=== PATIENT | female | born 1940 | race African-American/Black ===

== ENCOUNTER 2023-12-17 14:14 | Emergency (ER) | payer OTHER ==
[~2023-12-17] VITALS: Ht 160 cm; Wt 91.3 kg
[~2023-12-17 14:14] MED LIST: AMLO1TAB22 PO; CYCL-839 PO; DABI150C5 PO; DICL75TA3 PO; ENAL1TAB48 PO; HYDR25TA4 PO; METF-370 PO; NOR10T PO; SIMV20TA20 PO
[2023-12-17] MEDS ORDERED: AUG875T PO (14:44)
[2023-12-17] MEDS ORDERED: ACE3T PO (14:44)
[2023-12-17] MEDS ORDERED: HYDR-4902 PO (20:37)
[2023-12-17] MEDS: DexAMETHasone SOD PHOS 10MG/1ML VIAL INJ IM ONE (20:48)
[2023-12-17] MEDS: cefTRIAXone SOD 1,000 MG VL IM ONE (20:48)
[2023-12-17] MEDS: LIDOCAINE 1% HCL (LOCAL ANESTH.) INJ 20ML MDV ONE (20:54)
[2023-12-17 20:57] VITALS: BP 138/75; PULSE 95; RESP 17; TEMP 97.5; O2SAT 92
== END 2023-12-17 21:00 | disposition home or self-care (01) ==
LOC: ER 14:14
DX: K04.7 Periapical abscess without sinus (principal); K02.9 Dental caries, unspecified; Z88.6 Allergy status to analgesic agent
CPT/HCPCS: 96372; 99283; J0696; J1100; J2001